=== PATIENT | male | born 1945 | race Caucasian/White ===

== ENCOUNTER → 2018-12-10 | Outpatient (CLI) | payer OTHER | END | disposition home or self-care (01) | LOC: CVU 13:27 | PROVIDERS: ATTEND Orthopaedic Surgery | DX: I08.0 Rheumatic disorders of both mitral and aortic valves (principal); I11.9 Hypertensive heart disease without heart failure; E78.5 Hyperlipidemia, unspecified; R73.03 Prediabetes | CPT/HCPCS: 93306 ==